=== PATIENT | female | born 1970 | race Caucasian/White ===

== ENCOUNTER 2016-12-05 15:44 | Emergency (ER) | payer OTHER ==
[2016-12-05 15:50] VITALS: BP 114/75; PULSE 79; RESP 16; TEMP 98.8; O2SAT 94
--- NOTE | 2016-12-05 16:16 | UCPHY ---
H & P Time Seen by Provider: 12/05/16 16:10 Patient Type: New HPI/ROS: CHIEF COMPLAINT: Puncture wound to right foot. HISTORY OF PRESENT ILLNESS: The patient is a 46-year-old female who presents with a puncture wound on the sole of her right foot secondary to stepping on a lego a few days ago. She bandaged the wound initially and went about her day but thought she noticed pus in her sock today when she removed it. She also thought she noticed red streaking up side of the foot to the ankle. Her pain has worsened since she stepped on the lego. She is unsure if her tetanus is up to date. She denies fever, vomiting, diarrhea, or other complaints. 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 Musculoskeletal: No pain up the leg. Skin: No rashe, though noted lymphangitis. Neurological: No numbness or tingling. Past Medical/Surgical History: Lupus, ulcerative colitis. Social History: Nonsmoker. Smoking Status: Never smoked Physical Exam: General Appearance: Alert, no distress. Afebrile. Normal phonation. No respiratory distress. Neurological: Ox3. No motor weakness. Sensation intact. Gait nl. Skin: Warm and dry, no rashes. Musculoskeletal: No joint swelling. Extremities: No edema. . Right foot: small puncture wound to sole, skin tag removed, clean base. Doubt FB, she as well - was bare foot at the time. Faint lymphangitis to the foot medially. Psychiatric: Calm, nl affect. Constitutional: Initial Vital Signs Temperature (C) 37.1 C 12/05/16 15:48 Heart Rate 79 12/05/16 15:48 Respiratory Rate 16 12/05/16 15:48 Blood Pressure 114/75 12/05/16 15:48 O2 Sat (%) 94 12/05/16 15:48 O2 Delivery Mode Room Air Allergies/Adverse Reactions: Sulfa (Sulfonamide Antibiotics) Allergy (Verified 12/05/16 15:47) Home Medications: Medication Instructions Recorded Cephalexin [Keflex (*)] 500 mg PO TID #28 cap 12/05/16 Medical Decision Making ED Course/Re-evaluation: 46-year-old female presents with a puncture would to her right foot after she stepped on a lego a few days ago. Today she noticed pus in her sock and felt that there was red streaking. I, however, do not see red streaking on exam. Her pain did worsen today so I feel there is a chance the wound is getting infected. She does not have a fever, cough, vomiting, or any associated symptoms. She does not have a history of diabetes. We will clean the wound and discharge her with a prescription for Keflex. She is comfortable with this plan. WIll need TDAp updated. Differential Diagnosis: Differential diagnosis includes but is not limited to: Cellulitis, lymphangitis, PW, retained FB, osteomyelitis - Data Points Medications Given: Discontinued Medications Diphtheria/Tetanus/Acell Pertussis (Boostrix) 0.5 ml IM .ONCE ONE Stop: 12/05/16 16:46 Last Admin: 12/05/16 16:48 Dose: 0.5 ml Departure - Departure Disposition: Home, Routine, Self-Care Clinical Impression: Puncture wound Condition: Good Instructions: Puncture Wound (ED) Additional Instructions: Take Keflex as prescribed. Keep wound clean as instructed. Soak 3 times daily for 10-15 minutes I expect the red streaks to advance up to the calf maybe in toward the knee. Goes above the knee than you need to return. Furthermore he started feeling unwell such as fevers chills or pain in the calf and leg than you need to come back, or go to your local ER Follow up with your primary care provider next week for symptoms not improving. Return for any serious worsening of condition. Referrals: Tiffany Santo [Primary Care Provider] - 2-3 days without fail Prescriptions: Cephalexin [Keflex (*)] 500 mg PO TID #28 cap - PQRS PQRS Measurement: NA Report Scribed for: Kostas Crouch Report Scribed by: Alcon Thompson Date of Report: 12/05/16 Time of Report: 16:15
[2016-12-05] MEDS ORDERED: TDAP ADULT 0.5 ML INJ (BOOSTRIX) IM ONE (16:45)
== END 2016-12-05 16:55 | disposition home or self-care (01) ==
LOC: CED 15:44
DX: S91.331A Puncture wound without foreign body, right foot, initial encounter (principal); W22.8XXA Striking against or struck by other objects, initial encounter
CPT/HCPCS: G0463-PO